=== PATIENT | male | born 1990 | race African-American/Black ===

== ENCOUNTER 2021-01-16 08:24 | Inpatient (IN) | payer MEDICAID, OTHER ==
[~2021-01-16] VITALS: Ht 171.4 cm; Wt 170.0 kg
--- NOTE | 2021-01-16 09:05 | NUR ---
pt to room with steady gait. attached to monitors. vskendall. ninoska. dr. guzman to bedside for evaluation.
[2021-01-16] MEDS ORDERED: LABETALOL 5MG/ML, 20ML ONE (09:43)
[2021-01-16] MEDS: LABETALOL 5MG/ML, 20ML IVPush PRN ×3 (09:56→11:40)
[2021-01-16] MEDS ORDERED: KETOROLAC 30 MG/1 ML ONE (10:25)
[2021-01-16 10:42] LABS: BASOPHILS % (AUTO) 1 % (0-1); EOSINOPHILS % (AUTO) 1 % (1-7); LYMPHOCYTES % (AUTO) 22 % (22-44); MEAN CORPUSCULAR HEMOGLOBIN 30.5 pg (27.5-34.5); MEAN CORPUSCULAR HGB CONC 34.2 g/dL (33.2-36.2); MEAN PLATELET VOLUME 8.7 fL (7.4-10.4); MONOCYTES % (AUTO) 11 % (2-9); NEUTROPHILS % (AUTO) 65 % (42-75); PLATELET COUNT 140 x10^3/uL (130-400); RED BLOOD COUNT 3.71 x10^6/uL (4.38-5.82); RED CELL DISTRIBUTION WIDTH 15.8 % (9.4-14.8)
[2021-01-16 10:55] LABS: ALBUMIN 3.2 g/dL (3.4-5.0); ANION GAP 9 mmol/L (5-15); CALCIUM 8.2 mg/dL (8.5-10.1); CHLORIDE 107 mmol/L (98-107)
[2021-01-16] MEDS ORDERED: KETOROLAC 30 MG/1 ML IVPush ONE (11:00)
[2021-01-16 11:01] LABS: ALANINE AMINOTRANSFERASE 28 U/L (12-78); ALKALINE PHOSPHATASE 84 U/L (45-117); BILIRUBIN,TOTAL 1.1 mg/dL (0.2-1.0); CREATININE 2.68 mg/dL (0.7-1.3); TOTAL PROTEIN 7.5 g/dL (6.4-8.2)
--- NOTE | 2021-01-16 12:54 | NUR ---
PT RESTING IN BED. VSS. NADN. MRI DELAYED R/T MACHINE MALFUNCTION PER [employer] ANALYST. DR. MIGUEL NOTIFED.
[2021-01-16] MEDS ORDERED: POTASSIUM CHLORIDE 20 MEQ TAB.ER.PRT PO ONE (13:00)
[2021-01-16] MEDS ORDERED: POTASSIUM CHLORIDE 20 MEQ TAB.ER.PRT ONE (13:13)
--- NOTE | 2021-01-16 13:19 | NUR ---
TASK RN NOTE: PT RECLINED IN BED WATCHING TELEVISION WITH FRIEND, WHO IS AT THE BEDSIDE. NAD NOTED AT THIS TIME. RESPIRATIONS EVEN AND UNLABORED ON RA. ERMD AWARE OF HTN, AWAITING FURTHER ORDERS.
--- NOTE | 2021-01-16 14:27 | NUR ---
yellow med slip send down to pharm for hydrochlorothiazid
--- NOTE | 2021-01-16 14:29 | NUR ---
PT RESTING IN BED. VSS. NADN. AWAITING MEDICATION FROM PHARMACY
[2021-01-16] MEDS ORDERED: HYDROCHLOROTHIAZIDE 25 MG TABLET PO ONE (14:30)
[2021-01-16] MEDS ORDERED: HYDROmorphone 2 MG/ML, 1ML IV ONE (15:00)
[2021-01-16] MEDS ORDERED: HYDROmorphone 2 MG/ML, 1ML ONE (15:05)
--- NOTE | 2021-01-16 15:15 | NUR ---
BLOOD PRESSURE [id number] REPORTED TO PROVIDER. AWAITING ORDERS.
[2021-01-16] MEDS ORDERED: LABETALOL 5MG/ML, 20ML IVPush PRN ×2 (15:30→16:00)
[2021-01-16] MEDS ORDERED: LABETALOL 250 MG in SODIUM CHLORIDE 0.9% 200 ML IV PRN (15:30)
[2021-01-16] MEDS ORDERED: ONDANSETRON 2MG/ML, 2ML ONE (15:58)
[2021-01-16] MEDS ORDERED: POLYETHYLENE GLYCOL 17 GM PACKET PO PRN (16:00)
[2021-01-16] MEDS ORDERED: ONDANSETRON 2MG/ML, 2ML IVPush PRN (16:00)
[2021-01-16] MEDS ORDERED: GABAPENTIN 300 MG CAPSULE PO PRN (16:00)
[2021-01-16] MEDS ORDERED: DOCUSATE 100 MG CAPSULE PO PRN (16:00)
[2021-01-16] MEDS ORDERED: morphine SULFATE 10 MG/ML, 1ML IVPush PRN (16:00)
--- NOTE | 2021-01-16 16:06 | NUR ---
DR. HOLGUIN TO BEDSIDE. THIS RN CALLED PHARMACY. PHARMACY WORKING ON NICARDIPINE GTT.
--- NOTE | 2021-01-16 16:18 | NUR ---
PER DR. HOLGUIN TITRATE NICARDIPINE TO SBP 180
--- NOTE | 2021-01-16 16:44 | NUR ---
THIS RN ATTEMPTED TO OBTAIN UA FROM PT. PT BEGAN VOMITING. WILL ATTEMPT AGAIN. ZOFRAN ADMINSTERED.
[2021-01-16 16:53] LABS: TROPONIN I 0.024 ng/mL (0.000-0.045)
[2021-01-16 17:48] LABS: MICROSCOPIC AUTO
[2021-01-16 17:57] LABS: CHLORIDE,URINE RANDOM 75 mmol/L; POTASSIUM,URINE RANDOM 70 mmol/L; SODIUM,URINE RANDOM 54 mmol/L
--- NOTE | 2021-01-16 17:59 | NUR ---
PT TO AND FROM CT WITH THIS RN. BARBARAN.
--- NOTE | 2021-01-16 18:51 | NUR ---
REPORT RECEIVED FROM WENDY KYLE
--- NOTE | 2021-01-16 18:57 | NUR ---
PT SITTING UPRIGHT ON [facility] VSS. NICARDIPINE DRIP DECREASED DUE TO BLOOD PRESSURE. PT REQUESTING NEW BED, WILL REQUEST. NO ADDITIONAL NEEDS AT THIS TIME. CALL LIGHT AND PERSONAL BELONGINGS WITHIN REACH. SIGNIFICANT OTHER AT BEDSIDE.
--- NOTE | 2021-01-16 20:53 | NUR ---
PT MOVED FROM [facility] TO ICU BED. PT TOLERATED WELL. DENIES ANY ADDITIONAL NEEDS AT THIS TIME. CALL LIGHT AND PERSONAL BELONGINGS WITHIN REACH. SIGNIFICANT OTHER AT BEDSIDE.
--- NOTE | 2021-01-16 22:30 | NUR ---
PT ROOM AIR SAT NOTED TO BE 88% WHILE SLEEPING. PT PLACED BACK ON 2L O2, O2 SAT IMPROVED. NO ADDITIONAL NEEDS AT THIS TIME.
[2021-01-16 22:35] LABS: TROPONIN I < 0.015 ng/mL (0.000-0.045)
--- NOTE | 2021-01-17 00:03 | NUR ---
PT RESTING COMFORTABLY WITH EYES CLOSED ON HOSPITAL BED. PT DENIES ANY NEEDS AT THIS TIME. NICARDIPINE INFUSION DOSE CHANGE, SEE IV SPREADSHEET. CALL LIGHT AND PERSONAL BELONGINGS WITHIN REACH.
--- NOTE | 2021-01-17 02:32 | NUR ---
PT UP AT BEDSIDE TO USE URINAL. PT GIVEN WATER. PT DENIES AN ADDITIONAL NEEDS AT THIS TIME. CALL LIGHT AND PERSONAL BELONGINGS WITHIN REACH. NO ADDITIONAL NEEDS AT THIS TIME.
[2021-01-17] MEDS ORDERED: LABETALOL 5MG/ML, 20ML ONE (03:31)
[2021-01-17] MEDS: LABETALOL 5MG/ML, 20ML IVPush PRN (03:37)
[2021-01-17 06:24] LABS: BASOPHILS % (AUTO) 1 % (0-1); EOSINOPHILS % (AUTO) 1 % (1-7); LYMPHOCYTES % (AUTO) 23 % (22-44); MEAN CORPUSCULAR HEMOGLOBIN 30.2 pg (27.5-34.5); MEAN CORPUSCULAR HGB CONC 33.6 g/dL (33.2-36.2); MONOCYTES % (AUTO) 13 % (2-9); NEUTROPHILS % (AUTO) 63 % (42-75); PLATELET COUNT 141 x10^3/uL (130-400); RED BLOOD COUNT 3.52 x10^6/uL (4.38-5.82); RED CELL DISTRIBUTION WIDTH 15.6 % (9.4-14.8)
[2021-01-17 06:30] LABS: ALBUMIN 2.9 g/dL (3.4-5.0); ANION GAP 6 mmol/L (5-15); CHLORIDE 106 mmol/L (98-107)
[2021-01-17 06:39] LABS: ALANINE AMINOTRANSFERASE 27 U/L (12-78); ALKALINE PHOSPHATASE 68 U/L (45-117); CHOLESTEROL, TOTAL 142 mg/dL (140-239); CREATININE 2.58 mg/dL (0.7-1.3); HDL CHOL % 34 % (26-37); HDL CHOLESTEROL (DIRECT) 48 mg/dL (40-60); LDL CHOLESTEROL,CALCULATED 68 mg/dL (54-169); LDL/HDL RATIO 1.4 (0.5-3.0); TOTAL PROTEIN 7.5 g/dL (6.4-8.2); TRIGLYCERIDES 131 mg/dL (50-200); VLDL CHOLESTEROL 26 mg/dL (0-25)
--- NOTE | 2021-01-17 06:49 | NUR ---
DISCUSSION WITH HOSPITALIST REGARDING PT BP AND MAINTAINED BP OF SBP IN 180'S WITHOUT NICARDIPINE INFUSION. STOP NICARDIPINE INFUSION, NOW SWITCH TO ORAL MEDICATION TO MAINTAIN BP TODAY. PT TO ALSO BE DOWN GRADED FROM CCU ADMIT TO CARDIAC TELE. OK TO EAT CARDIAC DIET PER HOSPITALIST. PT DENIES ANY ADDITIONAL NEEDS AT THIS TIME. CALL LIGHT AND PERSONAL BELONGINGS WITHIN REACH AND HOSPITALIST AT BEDSIDE.
--- NOTE | 2021-01-17 06:55 | NUR ---
RECEIVED REPORT FROM HANNAH KYLE
[2021-01-17] MEDS ORDERED: LABETALOL 5MG/ML, 20ML IVPush PRN (07:00)
--- NOTE | 2021-01-17 07:05 | NUR ---
PT UPRIGHT ON HOSPITAL BED AWAKE & COMFORTABLE, WATCHING TV, RESPONDS APPROP TO STAFF, NAD, COMFORT MEASURES PROVIDED, VISITOR AT BS, CALL LIGHT WITHIN REACH.
--- NOTE | 2021-01-17 07:09 | NUR ---
BEDSIDE REPORT GIVEN TO CORY KYLE
--- NOTE | 2021-01-17 08:00 | NUR ---
PT REMAINS UPRIGHT ON HOSPITAL BED AWAKE & COMFORTABLE, WATCHING TV, RESPONDS APPROP TO STAFF, NAD, NO NEEDS AT THIS TIME, VISITOR AT BS, CALL LIGHT WITHIN REACH.
--- NOTE | 2021-01-17 08:35 | NUR ---
BREAKFAST TRAY GIVEN
[2021-01-17] MEDS ORDERED: HEPARIN 5,000 UNITS/ML, 1ML ONE (08:48)
[2021-01-17] MEDS ORDERED: AMLODIPINE 5 MG TABLET ONE (08:48)
--- NOTE | 2021-01-17 09:02 | NUR ---
PT UPRIGHT ON HOSPITAL BED AWAKE W C/O CARLITA LEVINE- MEDICATED PER MORGAN, PT WATCHING TV, RESPONDS APPROP TO STAFF, NAD, COMFORT MEASURES PROVIDED, VISITOR AT BS, CALL LIGHT WITHIN REACH. Addendum: 01/17/21 at 1011 by FÁTIMA PT REMAINS UPRIGHT ON HOSPITAL BED AWAKE & COMFORTABLE, PT WATCHING TV, RESPONDS APPROP TO STAFF, NAD, COMFORT MEASURES PROVIDED, VISITOR AT BS, CALL LIGHT WITHIN REACH.
[2021-01-17] MEDS: AMLODIPINE 5 MG TABLET PO SCH ×2 (09:47→21:16)
[2021-01-17] MEDS: HEPARIN 5,000 UNITS/ML, 1ML SQ SCH ×2 (09:47→17:33)
[2021-01-17] MEDS ORDERED: ACETAMINOPHEN 325 MG TABLET ONE (09:52)
[2021-01-17] MEDS: ACETAMINOPHEN 325 MG TABLET PO PRN ×2 (09:53→21:17)
--- NOTE | 2021-01-17 10:01 | NUR ---
PT UPRIGHT ON HOSPITAL BED AWAKE W C/O DULL LEVINE- MEDICATED PER EMAR, PT WATCHING TV, RESPONDS APPROP TO STAFF, NAD, NO NEEDS AT THIS TIME, VISITOR AT BS, CALL LIGHT WITHIN REACH.
--- NOTE | 2021-01-17 10:01 | NUR ---
Jeet byrd in [facility] - 01/17/21 at 1011 by FÁTIMA PT REMAINS UPRIGHT ON HOSPITAL BED AWAKE & COMFORTABLE, PT WATCHING TV, RESPONDS APPROP TO STAFF, NAD, COMFORT MEASURES PROVIDED, VISITOR AT BS, CALL LIGHT WITHIN REACH.
[2021-01-17] MEDS ORDERED: hydrALAzine 20 MG/ML, 1ML ONE (10:20)
[2021-01-17] MEDS: hydrALAzine 20 MG/ML, 1ML IV PRN ×2 (10:24→16:08)
--- NOTE | 2021-01-17 11:03 | NUR ---
PT REMAINS UPRIGHT ON HOSPITAL BED AWAKE MORE COMFORTABLE, WATCHING TV, RESPONDS APPROP TO STAFF, NAD, COMFORT MEASURES PROVIDED, VISITOR AT BS, CALL LIGHT WITHIN REACH.
[2021-01-17] MEDS ORDERED: MORPHINE SULFATE 4 MG/ML, 1ML ONE (11:37)
--- NOTE | 2021-01-17 12:04 | NUR ---
PT UPRIGHT ON HOSPITAL BED AWAKE COMFORTABLE, WATCHING TV, RESPONDS APPROP TO STAFF, NAD, NO NEEDS AT THIS TIME, VISITOR AT BS, CALL LIGHT WITHIN REACH.
--- NOTE | 2021-01-17 13:23 | NUR ---
TASK RN NOTE: PT BED CHANGED OUT. WAFFLE MATTRESS TOPPER PLACED ON NEW HOSPITAL BED FOR PT. NAD NOTED AT THIS TIME. PT MONITORING REPLACED.
--- NOTE | 2021-01-17 14:05 | NUR ---
PT REMAINS UPRIGHT ON HOSPITAL BED AWAKE COMFORTABLE, WATCHING TV, RESPONDS APPROP TO STAFF, NAD, COMFORT MEASURES PROVIDED, VISITOR AT BS, CALL LIGHT WITHIN REACH.
--- NOTE | 2021-01-17 15:02 | NUR ---
Pt to be admitted to [facility], room 525. Report called to JUAN.
[2021-01-17 17:35] VITALS: BP 140/93
[2021-01-17] MEDS: HYDROcodone/APAP 5/325 TABLET PO PRN (17:49)
[2021-01-17 20:31] VITALS: BP 165/112
[2021-01-18] VITALS (7 sets, daily range): BP systolic 137–190; BP diastolic 81–137
[2021-01-18] MEDS: HEPARIN 5,000 UNITS/ML, 1ML SQ SCH ×3 (00:39→18:03)
[2021-01-18] MEDS: HYDROcodone/APAP 5/325 TABLET PO PRN ×2 (00:50→08:57)
[2021-01-18] MEDS: hydrALAzine 20 MG/ML, 1ML IV PRN (01:59)
[2021-01-18 05:42] LABS: BASOPHILS % (AUTO) 1 % (0-1); EOSINOPHILS % (AUTO) 1 % (1-7); LYMPHOCYTES % (AUTO) 20 % (22-44); MEAN CORPUSCULAR HEMOGLOBIN 30.1 pg (27.5-34.5); MEAN CORPUSCULAR HGB CONC 33.5 g/dL (33.2-36.2); MEAN PLATELET VOLUME 8.2 fL (7.4-10.4); MONOCYTES % (AUTO) 11 % (2-9); NEUTROPHILS % (AUTO) 68 % (42-75); PLATELET COUNT 170 x10^3/uL (130-400); RED CELL DISTRIBUTION WIDTH 16.1 % (9.4-14.8)
[2021-01-18 05:57] LABS: ANION GAP 9 mmol/L (5-15); CALCIUM 8.5 mg/dL (8.5-10.1); CHLORIDE 103 mmol/L (98-107)
[2021-01-18 05:59] LABS: CREATININE 2.54 mg/dL (0.7-1.3)
[2021-01-18] MEDS: AMLODIPINE 5 MG TABLET PO SCH ×2 (08:56→21:01)
[2021-01-18] MEDS: ASA/APAP/ CAFFEINE TABLET PO PRN ×2 (09:08→15:08)
[2021-01-18] MEDS: METOPROLOL TARTRATE 25 MG TAB PO SCH (18:03)
[2021-01-19] MEDS: HEPARIN 5,000 UNITS/ML, 1ML SQ SCH ×2 (01:09→09:09)
[2021-01-19 01:13] VITALS: BP 151/93
[2021-01-19] MEDS: ASA/APAP/ CAFFEINE TABLET PO PRN (01:19)
[2021-01-19] MEDS: METOPROLOL TARTRATE 25 MG TAB PO SCH (05:05)
[2021-01-19 06:20] LABS: BASOPHILS % (AUTO) 1 % (0-1); EOSINOPHILS % (AUTO) 2 % (1-7); LYMPHOCYTES % (AUTO) 28 % (22-44); MEAN CORPUSCULAR HEMOGLOBIN 30.2 pg (27.5-34.5); MEAN CORPUSCULAR HGB CONC 33.5 g/dL (33.2-36.2); MEAN PLATELET VOLUME 8.8 fL (7.4-10.4); MONOCYTES % (AUTO) 15 % (2-9); NEUTROPHILS % (AUTO) 55 % (42-75); PLATELET COUNT 203 x10^3/uL (130-400); RED BLOOD COUNT 3.53 x10^6/uL (4.38-5.82)
[2021-01-19 06:28] LABS: ANION GAP 6 mmol/L (5-15); CALCIUM 8.2 mg/dL (8.5-10.1); CHLORIDE 103 mmol/L (98-107); CREATININE 2.66 mg/dL (0.7-1.3)
[2021-01-19] MEDS ORDERED: LORazepam 2 MG/ML, 1ML IVPush ONE (08:00)
[2021-01-19 09:01] VITALS: BP 156/93
[2021-01-19] MEDS: AMLODIPINE 5 MG TABLET PO SCH (09:10)
[2021-01-19 12:27] VITALS: BP 147/83
[2021-01-19] MEDS ORDERED: METO25TA35 PO (12:30)
[2021-01-19] MEDS ORDERED: CLON0.2T PO (12:30)
[2021-01-19] MEDS ORDERED: AMLO-150 PO (12:30)
[2021-01-19] MEDS ORDERED: HYDR-3343 PO (12:30)
[2021-01-19] MEDS ORDERED: AZITHROMYCIN 500 MG TABLET PO ONE (14:00)
[2021-01-19] MEDS ORDERED: CEFTRIAXONE 250 MG IM ONE ×2 (14:00→14:30)
[2021-01-19] MEDS ORDERED: CEFTRIAXONE 1,000 MG in DEXTROSE 5% 50 ML IVPB ONE (14:30)
[2021-01-19] MEDS ORDERED: METOPROLOL TARTRATE 25 MG TAB PO SCH (18:00)
== END 2021-01-19 15:15 | disposition home or self-care (01) | DRG 683 ==
LOC: ED 14:11 → EDIP 14:40 → 5SO 01-17 16:27
PROVIDERS: ADMIT Internal Medicine; ATTEND Family Medicine
DX: N17.9 Acute kidney failure, unspecified (principal); I16.9 Hypertensive crisis, unspecified; I12.9 Hypertensive chronic kidney disease with stage 1 through stage 4 chronic kidney disease, or unspecified chronic kidney disease; D63.8 Anemia in other chronic diseases classified elsewhere; E87.6 Hypokalemia; E88.09 Other disorders of plasma-protein metabolism, not elsewhere classified; N18.9 Chronic kidney disease, unspecified; R00.0 Tachycardia, unspecified; Z82.49 Family history of ischemic heart disease and other diseases of the circulatory system
CPT/HCPCS: 36415; 70450; 71045; 76770; 80048; 80053; 80061; 81001; 82436; 82570; 83036; 83605; 83690; 83880; 84133; 84300; 84443; 84484; 85025; 87040; 93005; 93306; 99285; G0378; J0696; J1170; J1644; J1885; J2405; J0360; J2270; J7050

== ENCOUNTER 2021-01-19 20:39 | Emergency (ER) | payer SELFPAY ==
[~2021-01-19] VITALS: Ht 177.8 cm; Wt 164.5 kg
[~2021-01-19 20:39] MED LIST: AMLO-150 PO; CLON0.2T PO; HYDR-3343 PO; METO25TA35 PO
[2021-01-19 22:28] LABS: BASOPHILS % (AUTO) 1 % (0-1); EOSINOPHILS % (AUTO) 1 % (1-7); LYMPHOCYTES % (AUTO) 22 % (22-44); MEAN CORPUSCULAR HEMOGLOBIN 30.5 pg (27.5-34.5); MEAN CORPUSCULAR HGB CONC 33.9 g/dL (33.2-36.2); MEAN PLATELET VOLUME 8.8 fL (7.4-10.4); MONOCYTES % (AUTO) 12 % (2-9); NEUTROPHILS % (AUTO) 65 % (42-75); PLATELET COUNT 228 x10^3/uL (130-400); RED BLOOD COUNT 3.67 x10^6/uL (4.38-5.82); RED CELL DISTRIBUTION WIDTH 16.1 % (9.4-14.8)
[2021-01-19 22:36] LABS: ALANINE AMINOTRANSFERASE 33 U/L (12-78); ALBUMIN 3.4 g/dL (3.4-5.0); ANION GAP 8 mmol/L (5-15); CALCIUM 8.7 mg/dL (8.5-10.1); CHLORIDE 103 mmol/L (98-107); CREATININE 2.88 mg/dL (0.7-1.3)
[2021-01-19 22:41] LABS: ALKALINE PHOSPHATASE 69 U/L (45-117); BILIRUBIN,TOTAL 0.8 mg/dL (0.2-1.0); TOTAL PROTEIN 8.2 g/dL (6.4-8.2)
--- NOTE | 2021-01-19 22:57 | NUR ---
REASSESSED/RE VITAL'D 150/106. NO CHANGED IN EXAM APOLOGIZED ABOUT WAIT AND ASKED TO WAIT IN LOBBY UNTIL ROOM READY. PATIENT UNDERSTANDING
--- NOTE | 2021-01-19 23:02 | NUR ---
PT AMBULATORY TO ROOM FROM LOBBY
--- NOTE | 2021-01-19 23:22 | NUR ---
FIRST CONTACT: PATIENT CAME IN TODAY FOR SOB, DIZZINESS, AND CHILLS. PATIENT WAS DISCHARGED TODAY FOR HYPERTENSION. STATES THE SOB IS IMPROVED NOW AND THE PATIENT IS JUST WORRIED ABOUT HIS BLOOD PRESSURE.
[2021-01-19 23:24] VITALS: BP 162/99
--- NOTE | 2021-01-20 00:43 | NUR ---
Patient given discharge instructions and they have confirmed that they understand the instructions. Patient ambulatory with steady gait. NAD, all questions answered appropriately, denies additional needs at this time. No personal belongings left in room after discharge.
== END 2021-01-20 00:45 | disposition home or self-care (01) ==
LOC: ED 23:59
DX: R06.00 Dyspnea, unspecified (principal); I10 Essential (primary) hypertension; I45.6 Pre-excitation syndrome; R07.89 Other chest pain; N28.9 Disorder of kidney and ureter, unspecified; R94.31 Abnormal electrocardiogram [ECG] [EKG]
CPT/HCPCS: 36415; 71045; 80053; 83880; 85025; 93005; 99285